=== PATIENT | male | born 1965 | race Caucasian/White ===

== ENCOUNTER 2023-04-24 02:20 | Emergency (ER) | payer MEDICARE, MEDICAID ==
[~2023-04-24] VITALS: Ht 175.3 cm; Wt 91.0 kg
[~2023-04-24 02:20] MED LIST: ALBU18HF12 IH; BUPR-112 PO; BUSP15TA3 PO; QUET100T34 PO; QUET50TA24 PO
[2023-04-24 02:27] VITALS: BP 124/76; PULSE 84; RESP 16; TEMP 99
== END 2023-04-24 04:22 | disposition home or self-care (01) ==
LOC: EMS 02:20
DX: F32.9 Major depressive disorder, single episode, unspecified (principal); D61.818 Other pancytopenia; H91.3 Deaf nonspeaking, not elsewhere classified
CPT/HCPCS: 72170; 99283